=== PATIENT | male | born 1950 | race Two or more races ===

== ENCOUNTER 2017-09-16 06:19 | Inpatient (IN) | payer MEDICARE, OTHER ==
[2017-09-16] MEDS ORDERED: fentaNYL PF VIAL 100 MCG/2 ML VIAL ×3 (06:40→10:42)
[2017-09-16] MEDS: fentaNYL PF VIAL 100 MCG/2 ML VIAL IV ×3 (06:41→10:54)
[2017-09-16 06:49] LABS: ADD MAN DIFF? NO
[2017-09-16 06:53] LABS: AGAP ISTAT 14 mmol/L (6-14); BASO # 0.1 x10^3/uL (0.0-0.2); BASO % 1 % (0-3); BUN ISTAT 14 mg/dL (8-26); CHLORIDE ISTAT 98 mmol/L (98-110); EOS # 0.1 x10^3/uL (0.0-0.7); EOS % 1 % (0-3); GLUCOSE ISTAT 310 mg/dL (70-99); HEMATOCRIT 43.1 % (39.0-53.0); HEMATOCRIT ISTAT 42 % (37-52); HEMOGLOBIN 14.3 g/dL (13.0-17.5); HEMOGLOBIN ISTAT 14.3 g/dL (14-18); ION CA ISTAT 1.14 mmol/L (1.13-1.32); LYMPH # 1.6 x10^3/uL (1.0-4.8); LYMPH % 13 % (24-48); MEAN CORPUSCULAR HEMOGLOBIN 30 pg (25-35); MEAN CORPUSCULAR HGB CONC 33 g/dL (31-37); MEAN CORPUSCULAR VOLUME 89 fL (79-100); MONO # 0.7 x10^3/uL (0.0-1.1); MONO % 6 % (0-9); NEUT # 9.8 x10^3uL (1.8-7.7); NEUT % 80 % (31-73); PLATELET COUNT 262 x10^3/uL (140-400); RED BLOOD COUNT 4.86 x10^6/uL (4.30-5.70); RED CELL DISTRIBUTION WIDTH 13.9 % (11.5-14.5); SODIUM ISTAT 137 mmol/L (135-145); TOT CO2 ISTAT 29 mmol/L (23-32); WHITE BLOOD COUNT 12.3 x10^3/uL (4.0-11.0)
[2017-09-16] MEDS ORDERED: HYDROmorphone 2 MG/ML VIAL (06:54)
[2017-09-16] MEDS: HYDROmorphone 2 MG/ML VIAL IV (06:55)
[2017-09-16] MEDS: ONDANSETRON PF 4 MG/2 ML VIAL. IV ×2 (07:00→08:36)
[2017-09-16 07:45] LABS: LACTIC ACID 1.6 mmol/L (0.4-2.0)
[2017-09-16] MEDS ORDERED: MORPHINE SULFATE 4 MG/ML DISP.SYRIN. IV (07:45)
[2017-09-16] MEDS: INSULIN REGULAR 100 UNIT/ML 10ML VIAL. IV (07:47)
[2017-09-16] MEDS ORDERED: LIDOCAINE 2% PF Vial for OR 5 ML VIAL. (08:07)
[2017-09-16] MEDS ORDERED: ROCURONIUM 50 MG/5 ML VIAL. (08:07)
[2017-09-16] MEDS ORDERED: PROPOFOL 20 ML IV (08:07)
[2017-09-16] MEDS ORDERED: SUCCINYLCHOLINE 200 MG/10 ML VIAL. (08:13)
[2017-09-16] MEDS: IV NORMAL SALINE 1000ML BAG 1,000 ML IV (08:36)
[2017-09-16] MEDS ORDERED: PROCHLORPERAZINE 10 MG/2 ML VIAL. IV (09:00)
[2017-09-16] MEDS ORDERED: ONDANSETRON PF 4 MG/2 ML VIAL. IV (09:00)
[2017-09-16] MEDS ORDERED: MORPHINE SULFATE 2 MG/ML DISP.SYRIN. IV (09:00)
[2017-09-16] MEDS ORDERED: LIDOCAINE 1% PF 2 ML VIAL. ID (09:00)
[2017-09-16] MEDS ORDERED: HYDROmorphone 2 MG/ML VIAL IV (09:00)
[2017-09-16] MEDS: IV RINGERS,LACTATED 1000ML 1,000 ML IV (09:00)
[2017-09-16] MEDS ORDERED: DEXAMETHASONE SOD PHOS 20 MG/5 ML VIAL. (09:28)
[2017-09-16] MEDS ORDERED: DESFLURANE 31 TO 60 MINUTES IH (09:28)
[2017-09-16] MEDS: BUPIVACAINE-EPI 0.25%-1:200000 50 ML VIAL. (09:35)
[2017-09-16] MEDS ORDERED: ONDANSETRON PF 4 MG/2 ML VIAL. (09:43)
[2017-09-16] MEDS ORDERED: NEOSTIGMINE 10 MG/10 ML VIAL. (09:44)
[2017-09-16] MEDS ORDERED: GLYCOPYRROLATE 1 MG/5 ML VIAL. (09:44)
[2017-09-16] MEDS ORDERED: DEXTROSE 50% 25 GM / 50ML DISP.SYRIN. IV (09:45)
[2017-09-16] MEDS ORDERED: PHENYLEPHRINE in 0.9% NACL PF 1 MG/10 ML SYRINGE. IV (09:50)
[2017-09-16] MEDS ORDERED: oxyCODONE/APAP 5/325 1 TAB TABLET PO ×2 (10:30)
[2017-09-16 10:44] LABS: POC GLUCOSE 195 mg/dL (70-99)
[2017-09-16 11:59] LABS: POC GLUCOSE 228 mg/dL (70-99)
[2017-09-16] MEDS: KETOROLAC 15 MG/ML VIAL. IV ×2 (12:19→17:30)
[2017-09-16 16:05] LABS: POC GLUCOSE 281 mg/dL (70-99)
[2017-09-16] MEDS: INSULIN ASPART 300 UNITS/3 ML INSULN.PEN SQ ×3 (17:36→22:22)
[2017-09-16] MEDS: guaiFENesin ORAL 200 MG/10 ML LIQUID. PO (18:19)
[2017-09-16 21:30] LABS: POC GLUCOSE 343 mg/dL (70-99)
[2017-09-16] MEDS: FAMOTIDINE 20 MG TABLET. PO (22:19)
[2017-09-16] MEDS: INSULIN DETEMIR 300 UNITS/3 ML INSULN.PEN. SQ (22:23)
[2017-09-17 03:03] LABS: ADD MAN DIFF? NO
[2017-09-17 03:05] LABS: BASO % 0 % (0-3); EOS % 0 % (0-3); HEMATOCRIT 38.6 % (39.0-53.0); HEMOGLOBIN 13.4 g/dL (13.0-17.5); LYMPH # 1.4 x10^3/uL (1.0-4.8); LYMPH % 15 % (24-48); MEAN CORPUSCULAR HEMOGLOBIN 31 pg (25-35); MEAN CORPUSCULAR HGB CONC 35 g/dL (31-37); MEAN CORPUSCULAR VOLUME 88 fL (79-100); MONO # 1.1 x10^3/uL (0.0-1.1); MONO % 11 % (0-9); NEUT # 7.1 x10^3uL (1.8-7.7); NEUT % 74 % (31-73); PLATELET COUNT 228 x10^3/uL (140-400); RED BLOOD COUNT 4.37 x10^6/uL (4.30-5.70); RED CELL DISTRIBUTION WIDTH 14.3 % (11.5-14.5); WHITE BLOOD COUNT 9.6 x10^3/uL (4.0-11.0)
[2017-09-17 03:24] LABS: ALBUMIN 2.9 g/dL (3.4-5.0); ALBUMIN/GLOBULIN RATIO 0.8 (1.0-1.7); ALK PHOS 68 U/L (46-116); ALT (SGPT) 38 U/L (16-63); ANION GAP 7 (6-14); AST (SGOT) 21 U/L (15-37); BLOOD UREA NITROGEN 18 mg/dL (8-26); BUN/CREATININE RATIO 15 (6-20); CALCIUM 8.4 mg/dL (8.5-10.1); CARBON DIOXIDE 29 mmol/L (21-32); CHLORIDE 100 mmol/L (98-107); CREATININE 1.2 mg/dL (0.7-1.3); GFR 60.2; GLUCOSE 272 mg/dL (70-99); POTASSIUM 3.9 mmol/L (3.5-5.1); SODIUM 136 mmol/L (136-145); TOTAL BILIRUBIN 0.5 mg/dL (0.2-1.0); TOTAL PROTEIN 6.7 g/dL (6.4-8.2)
[2017-09-17] MEDS: KETOROLAC 15 MG/ML VIAL. IV ×2 (06:21)
[2017-09-17] MEDS ORDERED: INFLUENZA VAX SCREEN BY RX. MC (09:00)
[2017-09-17] MEDS: guaiFENesin ORAL 200 MG/10 ML LIQUID. PO (09:20)
[2017-09-17] MEDS: FAMOTIDINE 20 MG TABLET. PO (09:20)
[2017-09-17] MEDS: ATORVASTATIN CALCIUM 40 MG TABLET. PO (09:20)
[2017-09-17] MEDS: amLODIPine BESYLATE 10 MG TABLET PO (09:21)
[2017-09-17] MEDS: METOPROLOL TART IMMED RELEASE 50 MG TABLET. PO (09:22)
[2017-09-17] MEDS: INSULIN ASPART 300 UNITS/3 ML INSULN.PEN SQ ×4 (09:30→13:39)
[2017-09-17] MEDS: INSULIN DETEMIR 300 UNITS/3 ML INSULN.PEN. SQ (09:32)
[2017-09-17 09:44] LABS: POC GLUCOSE 215 mg/dL (70-99)
[2017-09-17] MEDS: FLU VACC QS2017-18 (36MOS+)/PF 0.5 ML SYRINGE. VAX IM (09:44)
[2017-09-17 12:16] LABS: POC GLUCOSE 266 mg/dL (70-99)
[2017-09-18 02:17] LABS: HEMOGLOBIN A1C 10.3 % (4.8-5.6)
== END 2017-09-17 14:45 | disposition home or self-care (01) | DRG 351 ==
LOC: ER 06:19 → 4 NORTH 07:41
PROC: 0YU50JZ Supplement Right Inguinal Region with Synthetic Substitute, Open Approach (ICD-10-PCS; principal; 2017-09-16 08:47)
DX: K40.30 Unilateral inguinal hernia, with obstruction, without gangrene, not specified as recurrent (principal); E44.1 Mild protein-calorie malnutrition; I11.0 Hypertensive heart disease with heart failure; E11.65 Type 2 diabetes mellitus with hyperglycemia; I50.9 Heart failure, unspecified; E66.9 Obesity, unspecified; E78.5 Hyperlipidemia, unspecified; I25.10 Atherosclerotic heart disease of native coronary artery without angina pectoris; Z68.36 Body mass index [BMI] 36.0-36.9, adult; Z82.49 Family history of ischemic heart disease and other diseases of the circulatory system; Z95.1 Presence of aortocoronary bypass graft
CPT/HCPCS: 36415; 80047; 80053; 82962; 83036; 83605; 85025; 88304; 90686; 96374; 96375; 96376; 99291; 99291-25; A4215; C1781; J0330; J0690; J1100; J1170; J1815; J1885; J2370; J2405; J2704; J2710; J3010; J3490; J7030; J7120